=== PATIENT | male | born 1965 | race Caucasian/White ===

== ENCOUNTER → 2019-05-01 | Outpatient (CLI) | payer BC, OTHER ==
--- NOTE | 2019-05-01 12:00 | KCIC ---
EXAM: CT Chest without IV contrast CLINICAL HISTORY: LUNG NODULE, SMOKER 37 YEARS. COMPARISON: None. TECHNIQUE: CT of the chest without intravenous contrast. Axial, coronal and sagittal reformatted images were generated. ---PQRS compliance statement - One or more of the following individualized dose reduction techniques were utilized for this study: 1. Automated exposure control 2. Adjustment of the mA and/or kV according to patient size 3. Use of iterative reconstruction technique--- FINDINGS: Lack of intravenous contrast limits evaluation of solid organs, vasculature, and lymph nodes. Chest: The heart is not enlarged. No pericardial effusion. No pleural effusion or pneumothorax. A few mildly prominent mediastinal lymph nodes are seen. For example a pretracheal lymph node measures 7 mm short axis. No definite hilar lymphadenopathy within the constraints of noncontrast examination. No axillary lymphadenopathy. Trace bilateral gynecomastia. A 4 mm right apical lung nodule (series 6 image 44) is stable. A 4 mm right upper lobe lung nodule (series 6 image 93) is also stable. A 3 mm middle lobe perihilar lung nodule (series 6 image 105) is stable. Two 4 mm lung nodules are seen (series 6 image 164), stable. Calcified granuloma anterior left upper lobe (series 6 image 22) stable 4 mm nodule superior segment left upper lobe (series 6 image 98), stable Partially calcified lingular lung nodule (series 6 image 134) is stable. Additional bilateral lung nodules measure <6 mm are stable. Visualized Upper abdomen: Upper abdomen is grossly unremarkable. Bones: No aggressive osseous lesion is seen. IMPRESSION: Multiple bilateral lung nodules measuring <5 mm are essentially stable in size compared to 03/23/2016. Electronically signed by: Tyrell Randhawa MD (05/01/2019 11:58 AM) [facility]
== END | disposition home or self-care (01) ==
LOC: KCIC CT 08:37
PROVIDERS: ATTEND Physician Assistant Medical
DX: R91.8 Other nonspecific abnormal finding of lung field (principal); J84.10 Pulmonary fibrosis, unspecified; N62 Hypertrophy of breast
CPT/HCPCS: 71250

== ENCOUNTER → 2021-06-19 | Outpatient (CLI) | payer BC, OTHER ==
--- NOTE | 2021-06-19 09:13 | KCIC ---
Examination: CT chest without contrast HISTORY: Pulmonary nodule follow-up COMPARISON: 05/01/2019 TECHNIQUE: Axial CT images of the chest were performed without contrast. Coronal and sagittal reforma ts performed Exposure: One or more of the following individualized dose reduction techniques were utilized for thi s examination: 1. Automated exposure control 2. Adjustment of the mA and/or kV according to patient size 3. Use of iterative reconstruction technique FINDINGS: The visualized thyroid gland grossly appears unremarkable. The central airways are patent. The heart size grossly appears unremarkable. Small mediastinal lymph nodes identified measuring 9 mm in the rig ht paratracheal region. There is 3 mm nodule identified in the right upper lobe of the lung similar t o prior exam. 4 mm nodule identified in the right upper lobe of the lung similar to prior exam. 4 mm nodule identified in the right middle lobe of the lung similar to prior exam. There are multiple subc entimeter nodules identified in the left upper lobe, left lower lobe of the lung with the largest chepe suring 4 mm in prior exam. Mild bilateral lung emphysematous changes. The visualized noncontrasted li [place], spleen, adrenals grossly appears unremarkable. Mild degenerative changes thoracic spine. IMPRESSION: Stable multiple scattered subcentimeter bilateral pulmonary nodules unchanged. Electronically signed by: Daryl Hoffmann MD (06/19/2021 9:11 AM) [id number]
== END ==
LOC: KCIC CT 08:07
PROVIDERS: ATTEND Physician Assistant Medical
DX: R91.8 Other nonspecific abnormal finding of lung field (principal); J43.9 Emphysema, unspecified; M47.814 Spondylosis without myelopathy or radiculopathy, thoracic region; F17.210 Nicotine dependence, cigarettes, uncomplicated
CPT/HCPCS: 71250